=== PATIENT | female | born 1985 | race Hispanic/Latino ===

== ENCOUNTER 2018-10-08 11:44 | Outpatient (CLI) | payer OTHER ==
--- NOTE | 2018-10-08 11:58 | RAD ---
Radiograph right shoulder 3 views: HISTORY: 28-year-old female with pain and bursitis of right shoulder without injury FINDINGS: There is a moderately large approximately 17 x 16 x 5 5 mm focal calcific density in the soft tissues between the distal tip of the acromion and the lateral aspect of the humeral head. The glenohumeral joint and AC joint are normal. No fracture or subluxation. 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 The acute clinical manifestation of thi s would be calcific tendinitis.
== END 2018-10-08 11:45 | disposition home or self-care (01) ==
LOC: BICRAD 11:44
PROVIDERS: ATTEND Nurse Practitioner Family
DX: M75.51 Bursitis of right shoulder (principal); M11.011 Hydroxyapatite deposition disease, right shoulder